=== PATIENT | female | born 1975 | race Caucasian/White ===

== ENCOUNTER 2020-01-16 22:00 | Emergency (ER) | payer OTHER, SELFPAY ==
[2020-01-16 22:05] VITALS: BP 138/73; PULSE 57; RESP 20; TEMP 36.5; O2SAT 100
--- NOTE | 2020-01-16 22:29 | ED.EAR ---
HPI - Ear Problem General Chief complaint: Ear Stated complaint: R Ear Pain Time Seen by Provider: 01/16/20 22:18 History of Present Illness HPI Narrative: RIght ear pain for the past 4 days. Worsening in severity. Associated with hearing loss in that ear. No dizziness, fever, sore throat, congestion. Related Data Allergies Allergy/AdvReac Type Severity Reaction Status Date / Time diclofenac Allergy Unknown Verified 08/27/10 07:32 tramadol Allergy Unknown Verified 08/27/10 07:32 No Known Allergies Allergy Verified 06/01/17 19:49 Review of Systems Review of Systems: All systems reviewed & are unremarkable except as noted in HPI and below Constitutional: Constitutional: Denies fatigue and Denies fever(s) Eyes: Eyes: Denies change in vision ENT: Denies vertigo, Denies nasal congestion and Denies sore throat Cardiovascular: Cardiovascular: Denies chest pain Respiratory: Respiratory: Denies cough, Denies dyspnea and Denies wheezing Gastrointestinal: Gastrointestinal: Denies nausea and Denies vomiting PMFSH Family History Family History Mother Hypertension Father Hypertension Sibling Hypertension Grandparent Family history of malignant neoplasm of breast, Onset Age: 83 Family history of coronary artery disease, Onset Age: 74 Family history of malignant neoplasm of ovary, Onset Age: 83 Social History Social History Smoking status: Never smoker Second hand tobacco smoke exposure: No Alcohol intake: current Gender identity (if verbalized by the patient): Female Exam Const: General: healthy appearing, no acute distress and alert Nutritional Appearance: well nourished Orientation/consciousness: patient oriented x3 HENMT: Ears: TM abnormal wth effusion purulent on the right Eyes: Conjunctivae: conjunctivae normal Pupils: Equal, round and reactive pupils present EOM: EOMs intact bilaterally Neck: Neck: normal visual inspection Resp: Effort & Inspection: normal respiratory effort Auscultation: clear to auscultation bilaterally Cardio: Rate: regular rate Rhythm: regular rhythm Skin: General skin exam: normal color Rashes: no rashes Neuro: General: patient oriented x3, moves all extremities and no focal motor deficits Speech: normal speech Course Vital Signs Vital signs: Vital Signs Temperature 36.5 C 01/16/20 22:05 Pulse Rate 57 L 01/16/20 22:05 Respiratory Rate 01/16/20 22:05 Blood Pressure 138/73 01/16/20 22:05 Pulse Oximetry 100 01/16/20 22:05 Temperature 36.5 C 01/16/20 22:05 Pulse Rate 57 L 01/16/20 22:05 Respiratory Rate 01/16/20 22:05 Blood Pressure 138/73 01/16/20 22:05 Pulse Oximetry 100 01/16/20 22:05 Medical Decision Making Medical Records Medical records reviewed: Yes I reviewed the patient's medical records. Vital Signs Vital Signs: Vital Signs Temperature 36.5 C 01/16/20 22:05 Pulse Rate 57 L 01/16/20 22:05 Respiratory Rate 01/16/20 22:05 Blood Pressure 138/73 01/16/20 22:05 Pulse Oximetry 100 01/16/20 22:05 Temperature 36.5 C 01/16/20 22:05 Pulse Rate 57 L 01/16/20 22:05 Respiratory Rate 01/16/20 22:05 Blood Pressure 138/73 01/16/20 22:05 Pulse Oximetry 100 01/16/20 22:05 Discharge Plan Discharge Clinical Impression: Otitis media Qualifiers: Otitis media type: suppurative Chronicity: acute Laterality: right Recurrence: non-recurrent Spontaneous tympanic membrane rupture: without spontaneous rupture Qualified Code(s): H66.001 - Acute suppurative otitis media without spontaneous rupture of ear drum, right ear Patient Disposition: Home, Self-Care Condition: Stable Instructions: Antibiotic Form, Otitis Media (ED) Prescriptions: New amoxicillin-pot clavulanate [Augmentin] 875-125 mg tablet 1 tablet PO Q12H Qty: 20 RF: 0 Follow-
[2020-01-16] MEDS: AMOXICILLIN/CLAVULANATE K 875-125 MG TAB 1 TABLET PO (22:39)
== END 2020-01-16 22:40 | disposition home or self-care (01) ==
PROVIDERS: Emergency Provider Emergency Medicine; PCP Family Medicine
DX: H66.001 Acute suppurative otitis media without spontaneous rupture of ear drum, right ear (principal)
CPT/HCPCS: 99283; A9270

== ENCOUNTER 2020-06-26 08:59 | Outpatient (CLI) | payer OTHER, SELFPAY ==
--- NOTE | ~2020-06-26 | US_ITS ---
EXAMINATION: US pelvic complete w TV DATE: 06/26/2020 10:33 INDICATION: Abnormal uterine bleeding TECHNIQUE: Multiple transabdominal and endovaginal sonographic images of the pelvis were obtained. COMPARISON: None. FINDINGS: The uterus measures 8.9 x 5.5 x 4.5 cm. The endometrial complex measures 12 mm. The right o vary measures 2.4 x 1.9 x 1.5 cm. The left ovary measures 5.7 x 4.6 x 3.3 cm and contains cysts measu ring up to 4.1 cm. There is normal vascular flow in the ovaries. There is no free fluid in the pelvis . IMPRESSION: 1. No sonographic correlate for the patient's symptoms. Reviewed, dictated and finalized at location B.
== END 2020-06-26 09:00 | disposition home or self-care (01) ==
PROVIDERS: PCP Family Medicine; Visit Provider Student in an Organized Health Care Education/Training Program
DX: N93.9 Abnormal uterine and vaginal bleeding, unspecified (principal)
CPT/HCPCS: 76830; 76856

== ENCOUNTER 2020-07-26 00:56 | Outpatient (CLI) | payer OTHER, SELFPAY ==
[2020-07-26 18:19] LABS: SARS-CoV-2 RNA PCR Negative
== END 2020-07-26 00:57 | disposition home or self-care (01) ==
LOC: ANHCOVIDDT 00:57
PROVIDERS: PCP Family Medicine; Visit Provider Student in an Organized Health Care Education/Training Program
DX: Z01.812 Encounter for preprocedural laboratory examination (principal); Z20.828 Contact with and (suspected) exposure to other viral communicable diseases
CPT/HCPCS: 87635; C9803; U0003

== ENCOUNTER 2020-07-28 01:48 | Day surgery (SDC) | payer OTHER, SELFPAY ==
[2020-07-18 11:07] VITALS: BMI 24.8
--- NOTE | 2020-07-27 08:30 | PM.IMHP ---
H&P: HPI History of Present Illness Date/Time: 07/27/20 08:30 Chief complaint: mennorrhagia Narrative: Vianney Koenig is a 44 year old female with history of abnormal uterine bleeding for past four months. Patient reported regular menses until March 2020 when she experienced two full menses during the month. When she presented for evaluation in May 2020, her last menstrual period began on 03/15/2020 and reported persistent daily bleeding since then. Patient reported wearing a panty liner most days and stated that sometimes panty liner was saturated. Flow has become box toe flanger stitchdowns over time and completely stopped on 07/10/2020. She denies any further bleeding since then. Evaluation and management options were discussed with patient. Pt declines in-office EMB. Decision was made to proceed with a hysteroscopy/D&C as next step in management. Patient reports feeling well today without complaints. Review of Systems Review of Systems: All systems reviewed & are unremarkable except as noted in HPI and below Constitutional: Constitutional: Reports as per HPI, Reports no additional constitutional complaints, Denies chills, Denies fever(s), Denies headache(s) and Denies night sweats Eyes: Eyes: Reports as per HPI and Reports no additional eye complaints ENT: Reports system reviewed and no additional complaints, except as documented, Reports as per HPI, Reports Normal hearing present and Denies headache(s) Cardiovascular: Cardiovascular: Reports as per HPI, Reports no additional cardiovascular complaints, Denies chest pain and Denies dyspnea Respiratory: Respiratory: Reports as per HPI, Reports no additional respiratory complaints, Denies cough and Denies dyspnea Gastrointestinal: Gastrointestinal: Reports as per HPI, Reports no additional gastrointestinal complaints, Denies abdominal pain, Denies change in bowel habits, Denies change in stool character, Denies nausea and Denies vomiting Genitourinary: Genitourinary: Reports no additional female genitourinary complaints, Reports as per HPI, Denies abnormal vaginal bleeding, Denies genital lesions, Denies hot flashes, Denies dyspareunia, Denies pelvic pain, Denies sexual dysfunction, Denies urinary incontinence, Denies vaginal discharge, Denies vaginal dryness and Denies vaginal odor Musculoskeletal: Musculoskeletal: Reports no additional musculoskeletal complaints and Reports as per HPI Integumentary/Breasts: Skin/Breast: Reports system reviewed and no additional complaints, except as docu, Reports as per HPI, Denies breast pain and Denies nipple discharge Neurologic: Reports system reviewed and no additional complaints, except as documented, Reports as per HPI, Reports Normal hearing present and Denies headache(s) Psychiatric: Psychiatric: Reports no additional psychiatric complaints, Reports as per HPI, Denies anxiety and Denies depression Endocrine: Endocrine: Reports no additional endocrine complaints and Reports as per HPI Hematologic/Lymphatic: Hematologic/Lymphatic: Reports no additional hematologic/lymphatic complaints and Reports as per HPI Allergic/Immunologic: Allergic/Immunologic: Reports no additional allergic/immunologic complaints and Reports as per HPI PMFSH Past Medical History Medical History Asthma Meningitis Vaginal delivery x 2 Family History Family History Mother Hypertension Father Hypertension Sibling Hypertension Grandparent Family history of malignant neoplasm of breast, Onset Age: 83 Family history of coronary artery disease, Onset Age: 74 Family history of malignant neoplasm of ovary, Onset Age: 83 Social History Social History Smoking status: Never smoker Second hand tobacco smoke exposure: No Alcohol intake: current Gender identity (if verbalized by the patient): Female Spiritual car
--- NOTE | 2020-07-27 11:34 | WPDANESEPPF ---
Anes - Initial Pre Proc Eval Procedure: Operation Date: 07/28/20 07:30 Proposed Procedures p Hysteroscopy Dilation And Curettage With Possible Myosure - Brissa Prather MD Date/Time: 07/27/20 11:34 Surgeon: Brissa Prather MD Pre Op Diagnosis: mennorrhagia Patient Data Age: 44 Gender: F Height: 1.63 m Weight: 65.77 kg Allergies Allergy/AdvReac Type Severity Reaction Status Date / Time diclofenac Allergy Unknown Hives Verified 07/28/20 06:13 tramadol AdvReac Unknown N/V Verified 07/28/20 06:13 Home Medications Medication Instructions Recorded Confirmed Type lactobacillus combination no.8 3 3,000 mmu cells PO DAILY 05/18/20 07/28/20 History billion cell capsule ascorbic acid (vitamin C) [Vitamin 500 mg PO DAILY 07/18/20 07/28/20 History C] multivitamin 1 tablet PO DAILY 07/18/20 07/28/20 History zolpidem 10 mg tablet 10 mg PO HS PRN #30 tablet 07/21/20 07/28/20 Rx Patient hx anesthesia problems: none Family hx anesthesia problems: none PMFSH Past Medical History Medical History Asthma Meningitis Vaginal delivery x 2 Family History Family History Mother Hypertension Father Hypertension Sibling Hypertension Grandparent Family history of malignant neoplasm of breast, Onset Age: 83 Family history of coronary artery disease, Onset Age: 74 Family history of malignant neoplasm of ovary, Onset Age: 83 Social History Social History Smoking status: Never smoker Second hand tobacco smoke exposure: No Alcohol intake: current Gender identity (if verbalized by the patient): Female Spiritual care concerns: No Anes - Eval Final PreProcedure Day of Procedure 07/27/20 11:34 Patient weight: normal Heart: regular rate and rhythm Lungs: clear to auscultation and normal air movement Airway: Mallampati scale class II Neurological: alert and oriented Last oral intake: >/= 8 hours ASA classification: II Emergent: no Anesthetic plan: proceed Anesthesia type and monitoring: general GIVS and standard monitoring Informed Consent: The patient's anesthetic plan and its attendant risks and benefits were discussed with the patient/family/POA. Questions were solicited and answers provided to the satisfaction of the patient/family/POA.
[2020-07-28] MEDS: ACETAMINOPHEN 500 MG TABLET 1000 MG PO (06:19)
[2020-07-28 06:35] VITALS: BP 130/78; PULSE 53; RESP 16; TEMP 36; O2SAT 100
[2020-07-28] MEDS: LACTATED RINGERS 1,000 ML 30 ML IV CONT (06:40)
--- NOTE | 2020-07-28 07:23 | WPDHPUPDATE1 ---
History and Physical Update Update Date/Time: 07/28/20 07:23 History and Physical has been reviewed, including an updated exam of the patient. There are NO changes in the patient's condition. Risks, benefits, and alternatives have been discussed and questions answered. Patient agrees to proceed with procedure.
[2020-07-28] MEDS: LIDOCAINE HCL 1% LOCAL INJ 20 ML VIAL INFILTRATE (07:45)
--- NOTE | 2020-07-28 07:58 | SUR.OPER ---
350ml ns in, 350ml ns out. aware
--- NOTE | 2020-07-28 08:02 | PM.PROC ---
Procedure Note - Detailed Date of procedure: 07/28/20 Pre-op diagnosis: mennorrhagia Post-op diagnosis: same Procedure performed: Hysteroscopy, dilation and curettage Description of procedure: The patient was taken to the operating room where she self transferred to the operating room table. Patient was placed in dorsal supine position. Anesthesia was administered and found to be adequate. The patient was repositioned in the dorsal lithotomy position with the use of Oniel stirrups. She was prepped and draped in usual sterile fashion. A red rubber catheter was used to drain the bladder of 200 cc clear urine. A bivalve speculum was inserted into the vagina. The cervix was well visualized. The anterior lip of the cervix was grasped with a single-tooth tenaculum. A paracervical block was performed with 1% plain lidocaine. 5 cc of lidocaine was administered on either side for total of 10 cc. The cervix was serially dilated to accommodate a hysteroscope. The hysteroscope was introduced into endometrial cavity. A minimal amount of fluffy tissue was visualized. The cavity appeared to be mildly hyperemic. No polyps, fibroids, or other intracavitary lesions were seen. Bilateral tubal ostia were visualized. A few photographs were taken and the hysteroscope was removed. A medium-size rigid curette was used to perform a curettage of the endometrial cavity. All four quadrants of the uterus were explored and a minimal amount of tissue was obtained to be sent to pathology for analysis. The tenaculum was removed. Minimal oozing was noted from the tenaculum sites. These sites were made hemostatic with silver nitrate. The vagina was cleansed and dried. The speculum was removed. The remainder of the patient was cleansed and dried. She was taken out of the dorsal lithotomy position and awakened from anesthesia without difficulty. She was transferred to the recovery room in stable condition. All sponge, lap, and instrument counts were correct at the end of the procedure. Anesthesia: MAC Surgeon: Brissa Prather MD Estimated blood loss (mL): 5 IV fluids (mL): 800 Urine output (mL): 200 Drains: No Packing: No Pathology: yes (endometrial curettings) Complications: No immediate complications Condition: stable Disposition: PACU Findings: Intraoperative findings: mildly hyperemic endometrial cavity, no intracavitary lesions seen, bilateral tubal ostia visualized
[2020-07-28 08:03] VITALS: BP 114/72; PULSE 63; RESP 14; O2SAT 97
[2020-07-28 08:25] VITALS: BP 114/77; PULSE 55; RESP 14
[2020-07-28 08:50] VITALS: BP 139/90; PULSE 54; RESP 14
== END 2020-07-28 09:00 | disposition home or self-care (01) ==
PROVIDERS: PCP Family Medicine; Visit Provider Student in an Organized Health Care Education/Training Program
PROC: 0U5B8ZZ Destruction of Endometrium, Via Natural or Artificial Opening Endoscopic (ICD-10-PCS; CPT 58563; principal; 2020-07-28 07:30)
DX: N92.0 Excessive and frequent menstruation with regular cycle (principal)
CPT/HCPCS: 58558; 88305; A9270; J2250; J2704; J3010; J7030; J7120